=== PATIENT | female | born 1980 | race Caucasian/White ===

== ENCOUNTER 2022-06-27 05:30 | Day surgery (SDC) | payer BC ==
[~2022-06-27 05:30] MED LIST: Sodium Chloride 0.9% 10 ML Syringe FLUSH PRN; Sodium Chloride 0.9% 10 ML Syringe FLUSH SCH
[2022-06-27] MEDS ORDERED: Dextrose 5%-0.45% NaCl 1,000 ML IV SCH (06:00)
[2022-06-27] MEDS ORDERED: Midazolam 1 MG/ML 2 ML SDV ONE (06:10)
[2022-06-27] MEDS ORDERED: fentaNYL 100 MCG/2 ML SDV ONE (06:11)
[2022-06-27] MEDS ORDERED: fentaNYL 100 MCG/2 ML SDV IV ONE ×2 (06:32)
[2022-06-27] MEDS ORDERED: Midazolam 1 MG/ML 2 ML SDV IV ONE ×2 (06:33→06:34)
== END 2022-06-27 08:25 | disposition home or self-care (01) ==
LOC: DL.ENDO 05:30
PROVIDERS: ATTEND Internal Medicine Gastroenterology
DX: K31.89 Other diseases of stomach and duodenum (principal); K44.9 Diaphragmatic hernia without obstruction or gangrene; E66.09 Other obesity due to excess calories; F32.A Depression, unspecified; F41.1 Generalized anxiety disorder; I10 Essential (primary) hypertension; Z68.32 Body mass index [BMI] 32.0-32.9, adult; Z88.5 Allergy status to narcotic agent
CPT/HCPCS: 87077; J2250; J3010; J7042

== ENCOUNTER 2022-06-29 06:57 | Day surgery (SDC) | payer BC ==
[~2022-06-29 06:57] MED LIST changes: +Dextrose 5%-0.45% NaCl 1,000 ML IV SCH
[2022-06-29] MEDS ORDERED: Midazolam 1 MG/ML 2 ML SDV IV ONE ×7 (06:58→08:34)
[2022-06-29] MEDS ORDERED: fentaNYL 100 MCG/2 ML SDV IV ONE ×3 (06:58→08:20)
[2022-06-29] MEDS ORDERED: Midazolam 1 MG/ML 2 ML SDV ONE (08:11)
[2022-06-29] MEDS ORDERED: fentaNYL 100 MCG/2 ML SDV ONE (08:12)
== END 2022-06-29 10:00 | disposition home or self-care (01) ==
LOC: DL.ENDO 06:57
PROVIDERS: ATTEND Internal Medicine Gastroenterology
DX: D12.8 Benign neoplasm of rectum (principal); K64.8 Other hemorrhoids; I10 Essential (primary) hypertension; E66.09 Other obesity due to excess calories; Z88.5 Allergy status to narcotic agent; Z80.0 Family history of malignant neoplasm of digestive organs; F41.1 Generalized anxiety disorder; R07.89 Other chest pain; Z91.011 Allergy to milk products; Z68.32 Body mass index [BMI] 32.0-32.9, adult
CPT/HCPCS: 45385; J2250; J3010; J7042

== ENCOUNTER 2024-11-21 17:21 | Emergency (ER) | payer BC ==
[2024-11-21] MEDS: Take Home: traMADol 50 MG, 4 Tab Pack PO ONE (18:08)
== END 2024-11-21 18:18 | disposition home or self-care (01) ==
LOC: DL.ED 17:21
DX: S92.355A Nondisplaced fracture of fifth metatarsal bone, left foot, initial encounter for closed fracture (principal); I10 Essential (primary) hypertension; Z86.16 Personal history of COVID-19; Z88.5 Allergy status to narcotic agent; Z79.899 Other long term (current) drug therapy; W11.XXXA Fall on and from ladder, initial encounter; Y93.89 Activity, other specified
CPT/HCPCS: 73630; 99283; 99284; A9270